=== PATIENT | female | born 1970 | race African-American/Black ===

== ENCOUNTER 2021-04-09 09:43 | Emergency (ER) | payer OTHER ==
[~2021-04-09] VITALS: Ht 167.6 cm; Wt 52.2 kg
[2021-04-09 09:46] VITALS: BP 132/95
== END 2021-04-09 10:50 | disposition home or self-care (01) ==
LOC: ER 09:43
DX: U07.1 COVID-19 (principal); F12.90 Cannabis use, unspecified, uncomplicated